=== PATIENT | female | born 1990 | race American Indian/Alaskan Native ===

== ENCOUNTER 2017-04-08 23:39 | Emergency (ER) | payer MEDICAID | END 2017-04-09 | disposition left against medical advice (07) | LOC: ED 23:39 | DX: K08.89 Other specified disorders of teeth and supporting structures (principal); Z53.21 Procedure and treatment not carried out due to patient leaving prior to being seen by health care provider ==

== ENCOUNTER 2019-05-26 23:49 | Emergency (ER) | payer MEDICAID ==
[2019-05-27 00:40] VITALS: BP 134/93
== END 2019-05-27 00:45 | disposition left against medical advice (07) ==
LOC: ED 23:49
DX: R42 Dizziness and giddiness (principal); Z53.21 Procedure and treatment not carried out due to patient leaving prior to being seen by health care provider